=== PATIENT | male | born 1990 | race Caucasian/White ===

== ENCOUNTER 2018-04-03 03:25 | Emergency (ER) | payer SELFPAY ==
[~2018-04-03] VITALS: Ht 167.6 cm; Wt 74.8 kg
[~2018-04-03 03:25] MED LIST: CELEXA20 MG PO; CIPRO500 MG PO; FLAGYL500 MG PO; HYDROCODONE BIT1 T11 PO; KEFLEX500 MG PO; MOTRIN800 MG PO; Motrin,Rufen800 MG PO; NORCO 5-325 TA1 EACH PO; NORFLEX100 MG PO; Orphenadrine C100 MG PO; PERCOCET 325 MG1 TA2 PO; PREDNISONE20 M1 PO
== END 2018-04-03 04:32 | disposition home or self-care (01) ==
LOC: ED 03:25
DX: S09.8XXA Other specified injuries of head, initial encounter (principal); F10.10 Alcohol abuse, uncomplicated; Z90.49 Acquired absence of other specified parts of digestive tract; W19.XXXA Unspecified fall, initial encounter; Y93.89 Activity, other specified; Y92.89 Other specified places as the place of occurrence of the external cause; Y99.8 Other external cause status

== ENCOUNTER 2019-06-22 13:17 | Emergency (ER) | payer BC ==
[~2019-06-22] VITALS: Ht 182.8 cm; Wt 102.1 kg
[2019-06-22] MEDS ORDERED: Motrin,Rufen800 MG PO (15:48)
== END 2019-06-22 15:51 | disposition home or self-care (01) ==
LOC: ED 13:17
DX: S80.11XA Contusion of right lower leg, initial encounter (principal); W10.8XXA Fall (on) (from) other stairs and steps, initial encounter; Y93.01 Activity, walking, marching and hiking; Y92.89 Other specified places as the place of occurrence of the external cause; Y99.8 Other external cause status

== ENCOUNTER 2021-06-24 17:52 | Emergency (ER) | payer SELFPAY ==
[~2021-06-24] VITALS: Ht 182.8 cm; Wt 99.8 kg
[2021-06-24] MEDS ORDERED: NAPROSYN500 MG PO (22:55)
== END 2021-06-24 23:11 | disposition home or self-care (01) ==
LOC: ED 17:52
DX: M71.21 Synovial cyst of popliteal space [Baker], right knee (principal)

== ENCOUNTER 2022-06-07 20:14 | Emergency (ER) | payer BC ==
[~2022-06-07] VITALS: Ht 182.8 cm; Wt 102.1 kg
[~2022-06-07 20:14] MED LIST changes: +NAPROSYN500 MG PO
[2022-06-07] MEDS ORDERED: ESCITALOPRAM OX20 MG PO (20:27)
[2022-06-07 20:48] LABS: BASO % 0.2 % (0.0-1.0); EOS # 0.1 10*3/uL (0.0-0.4); EOS % 0.7 % (1.0-4.0); HEMATOCRIT 43.5 % (42.0-52.0); LYMPH # 1.5 10*3/uL (1.3-4.4); LYMPH % 11.8 % (27.0-41.0); MEAN CELL VOLUME 86.3 fl (80.0-94.0); MEAN CORPUSCULAR HGB 29.2 pg (27.0-31.0); MEAN CORPUSCULAR HGB CONC 33.8 g/dl (33.0-37.0); MEAN PLATELET VOLUME 8.6 fl (9.6-12.3); MONO % 7.9 % (3.0-9.0); NEUT # 10.4 10*3/uL (2.3-7.9); NEUT % 79.2 % (47.0-73.0); PLATELET COUNT AUTOMATED 204 10*3/uL (130-400); RED BLOOD COUNT 5.04 10*6/uL (4.50-5.90); RED CELL DISTRI WIDTH 12.5 % (0-14.5); WHITE BLOOD COUNT 13.1 10*3/uL (4.8-10.8)
[2022-06-07 21:10] LABS: ALKALINE PHOSPHATASE 92 U/L (46-116); BUN 10 mg/dl (9-23); CHLORIDE 101 mmol/L (98-107); CREATININE 1.18 mg/dL (0.70-1.30); POTASSIUM 3.9 mmol/L (3.4-5.1); SGPT/ALT 34 U/L (10-49); SODIUM 136 mmol/L (136-145); TOTAL PROTEIN 6.8 gm/dL (6.0-8.0)
== END 2022-06-07 23:44 | disposition home or self-care (01) ==
LOC: ED 20:14
PROVIDERS: Nurse Practitioner Family
DX: T40.2X1A Poisoning by other opioids, accidental (unintentional), initial encounter (principal); Z79.899 Other long term (current) drug therapy; Z90.49 Acquired absence of other specified parts of digestive tract; Y92.89 Other specified places as the place of occurrence of the external cause

== ENCOUNTER 2023-08-01 16:30 | Emergency (ER) | payer BC ==
[~2023-08-01] VITALS: Ht 182.8 cm; Wt 111.1 kg
[~2023-08-01 16:30] MED LIST changes: +ESCITALOPRAM OX20 MG PO
[2023-08-01] MEDS ORDERED: methylPREDNISolone sod succ 125 MG VIAL IM ONE (17:10)
[2023-08-01] MEDS ORDERED: Ketorolac Tromethamine 30 MG/ML VIAL IM ONE (17:10)
== END 2023-08-01 17:08 | disposition home or self-care (01) ==
LOC: ED 16:30
DX: G56.21 Lesion of ulnar nerve, right upper limb (principal); Z79.899 Other long term (current) drug therapy; Z90.49 Acquired absence of other specified parts of digestive tract